=== PATIENT | female | born 1985 | race Caucasian/White ===

== ENCOUNTER 2020-12-17 09:29 | Outpatient (CLI) | payer OTHER ==
[2020-12-17] MEDS ORDERED: Iopamidol 300 61% 50 ML VIAL FS ONE (10:00)
[2020-12-17] MEDS ORDERED: Gadobenate Dimeglumine 529 MG/1 ML (20ML VIAL) ONE (10:00)
[2020-12-17] MEDS ORDERED: Lidocaine 1% PF 10 ML AMP ONE (10:00)
[2020-12-17] MEDS ORDERED: EPINEPHrine 1 MG/ML AMP ONE (10:00)
== END 2020-12-17 09:30 | disposition home or self-care (01) ==
LOC: RAD 09:29
PROVIDERS: ATTEND Emergency Medicine Sports Medicine
DX: S43.001D Unspecified subluxation of right shoulder joint, subsequent encounter (principal); S43.431D Superior glenoid labrum lesion of right shoulder, subsequent encounter; M75.111 Incomplete rotator cuff tear or rupture of right shoulder, not specified as traumatic; M19.011 Primary osteoarthritis, right shoulder
CPT/HCPCS: 23350; A9577; J0171; J2001; Q9967

== ENCOUNTER 2021-04-05 13:51 | Outpatient (CLI) | payer OTHER | END 2021-04-05 13:52 | disposition home or self-care (01) | LOC: ULT 13:51 | PROVIDERS: ATTEND Family Medicine | DX: R00.0 Tachycardia, unspecified (principal) | CPT/HCPCS: 93306 ==